=== PATIENT | female | born 1980 | race Caucasian/White ===

== ENCOUNTER 2017-09-07 09:18 | Inpatient (IN) | payer OTHER ==
[~2017-09-07] VITALS: Ht 149.9 cm; Wt 71.4 kg
[2017-09-07 10:45] VITALS: BP 131/75
--- NOTE | 2017-09-07 10:45 | NUR ---
37 year old FEMALE admitted to room # 6 for stabilization. Reports an addiction to ALCOHOL last used 20 hours prior to admission. Compliant with admission procedure. Patient denies any anxiety BUT ADMITS TO NAUSEA See assessment forms for additional information about patient status.
[2017-09-07] MEDS ORDERED: CARAFATE1 G1 PO (11:01)
[2017-09-07] MEDS ORDERED: VITAMIN B-1100 M1 PO (11:03)
[2017-09-07] MEDS ORDERED: LEVOTHYROXINE125 MCG PO (11:03)
[2017-09-07] MEDS ORDERED: ATORVASTATIN CA80 M1 PO (11:04)
[2017-09-07] MEDS ORDERED: PANTOPRAZOLE SO40 MG PO (11:05)
[2017-09-07 11:17] LABS: BASO # 0.1 10*3/uL (0.0-0.1); BASO % 0.6 % (0.0-1.0); EOS % 0.2 % (1.0-4.0); HEMATOCRIT 37.2 % (37.0-47.0); HEMOGLOBIN 12.6 g/dl (12.0-16.0); LYMPH # 2.4 10*3/uL (1.3-4.4); LYMPH % 20.2 % (27.0-41.0); MEAN CELL VOLUME 97.9 fl (81.0-99.0); MEAN CORPUSCULAR HGB 33.2 pg (27.0-31.0); MEAN CORPUSCULAR HGB CONC 33.9 g/dl (33.0-37.0); MEAN PLATELET VOLUME 9.8 fl (9.6-12.3); MONO # 1.2 10*3/uL (0.1-1.0); NEUT # 8.3 10*3/uL (2.3-7.9); NEUT % 68.7 % (47.0-73.0); PLATELET COUNT AUTOMATED 281 10*3/uL (130-400); RED CELL DISTRI WIDTH 13.3 % (0-14.5); WHITE BLOOD COUNT 12.1 10*3/uL (4.8-10.8)
--- NOTE | 2017-09-07 11:31 | NUR ---
D/C PLANNING: PATIENT'S PLAN OF ACTION IS INPATIENT TREATMENT. REFERRALS WERE MADE TO GREGORY HOPPER AND VENKATESH DANIELSON. FRUIT WASHER WILL FOLLOW-UP WITH PATIENT AND BOTH TREATMENT FACILITIES. SINCERE MONACO B.A. FRUIT WASHER.
[2017-09-07 11:40] LABS: ALBUMIN 4.1 gm/dl (3.1-4.5); ALKALINE PHOSPHATASE 86 U/L (45-117); BUN 6 mg/dl (7-24); CHLORIDE 103 mmol/L (98-107); CREATININE 0.78 mg/dL (0.55-1.02); LIPASE 311 U/L (73-393); POTASSIUM 3.8 mmol/L (3.5-5.1); SGOT/AST 37 IU/L (3-35); SGPT/ALT 26 U/L (12-78); SODIUM 137 mmol/L (136-145); TOTAL PROTEIN 8.8 gm/dL (6.4-8.2)
[2017-09-07 11:41] LABS: ETHYL ALCOHOL < 3.0 mg/dl (<3)
[2017-09-07 11:44] LABS: BETA-HCG, QUANT < 1.0 mIU/mL (1-3)
[2017-09-07 11:47] LABS: BILIRUBIN NEGATIVE (NEGATIVE); BLOOD NEGATIVE (NEGATIVE); CLARITY SL CLOUDY (CLEAR); COLOR YELLOW (YELLOW); GLUCOSE NEGATIVE (NEGATIVE); KETONE TRACE (NEGATIVE); LEUKO ESTERASE NEGATIVE (NEGATIVE); NITRITE NEGATIVE (NEGATIVE); SPECIFIC GRAVITY 1.015 (1.005-1.030)
[2017-09-07 12:00] VITALS: BP 125/79
[2017-09-07 12:02] LABS: URINE AMPHETAMINES < 1000 (1000ng/ml); URINE BARBITURATES < 200 (200ng/ml); URINE BENZODIAZEPINES < 200 (200ng/ml); URINE CANNABINOIDS (THC) > 50 (50ng/ml); URINE COCAINE < 300 (300ng/ml); URINE METHADONE < 300 (300ng/ml); URINE OPIATES < 300 (300ng/ml)
--- NOTE | 2017-09-07 12:03 | NUR ---
OFFERED NAUSEA MEDICATION. PATIENT REFUSES AT THIS TIME.
[2017-09-07 12:04] LABS: URINE PHENCYCLIDINE < 25 (25ng/ml)
[2017-09-07 12:05] LABS: BACTERIA 4+; EPITHELIAL CELLS 15-20
[2017-09-07 16:00] VITALS: BP 128/85
[2017-09-07 20:00] VITALS: BP 126/84
--- NOTE | 2017-09-07 20:24 | NUR ---
PRN TRAZADONE GIVEN FOR PT COMPLAINTS OF SLEEPLESSNESS. CALL LIGHT WITHN REACH, WILL MONITOR
--- NOTE | 2017-09-07 20:58 | NUR ---
PRN NICODERM PATCH REQUESTED BY PATIENT INSTEAD OF INHALER. PATCH PLACED ON LEFT ARM
--- NOTE | 2017-09-07 21:30 | NUR ---
PRN TRAZADONE EFFECTIVE, PT SLEEPING
[2017-09-08] VITALS: BP 115/67
--- NOTE | 2017-09-08 01:32 | NUR ---
PRN TRAZADONE GIVEN FOR CONTINUED SLEEPLESSNESS. CALL LIGHT WITHIN REACH, WILL MONITOR
[2017-09-08 08:00] VITALS: BP 110/79
--- NOTE | 2017-09-08 08:06 | NUR ---
Patient reports the following symptoms of withdrawal: ANXIETY . Patient given scheduled/PRN medication to control withdrawal symptoms. Close observation will be maintained.
--- NOTE | 2017-09-08 09:00 | NUR ---
Patient resting. Responding to scheduled medications with fewer complaints of anxiety.
[2017-09-08 12:00] VITALS: BP 115/68
[2017-09-08 16:00] VITALS: BP 102/60
[2017-09-08 20:00] VITALS: BP 128/72
--- NOTE | 2017-09-08 20:40 | NUR ---
PATIENT IS RESTING IN BED. PATIENT DENIES ANY PAIN OR DISCOMFORT AT THIS TIME. PATIENT WAS COOPERATIVE UPON ASSESSSMENT. PATIENT HAS NO SOB AND IS ABLE TO RESPOND APPROPRIATELY. CALL LIGHT IS WITHIN REACH. SEE SHIFT ASSESSMENT.
[2017-09-09] VITALS: BP 98/55
--- NOTE | 2017-09-09 00:42 | NUR ---
PATIENT IS WATCHING TV IN THE ROOM. PATIENT IS REQUESTING SOMETHING TO HELP THEM SLEEP. PATIENT IS COOPERATIVE AND WILLING TO PARTICIPATE IN CARE. PATIENT DENIES ANY PAIN OR DISCOMFORT AT THIS TIME. CALL LIGHT IS WITHIN REACH.
--- NOTE | 2017-09-09 00:44 | NUR ---
PATIENT WAS GIVEN TRAZADONE PER PATIENT REQUEST TO HELP WITH SLEEP.
[2017-09-09 06:14] LABS: BASO % 0.4 % (0.0-1.0); EOS # 0.2 10*3/uL (0.0-0.4); EOS % 2.5 % (1.0-4.0); HEMOGLOBIN 11.3 g/dl (12.0-16.0); LYMPH # 2.5 10*3/uL (1.3-4.4); LYMPH % 34.7 % (27.0-41.0); MEAN CELL VOLUME 98.6 fl (81.0-99.0); MEAN CORPUSCULAR HGB 32.8 pg (27.0-31.0); MEAN CORPUSCULAR HGB CONC 33.2 g/dl (33.0-37.0); MEAN PLATELET VOLUME 10.8 fl (9.6-12.3); MONO # 0.9 10*3/uL (0.1-1.0); MONO % 12.3 % (3.0-9.0); NEUT # 3.6 10*3/uL (2.3-7.9); PLATELET COUNT AUTOMATED 229 10*3/uL (130-400); RED BLOOD COUNT 3.45 10*6/uL (4.10-5.10); RED CELL DISTRI WIDTH 13.2 % (0-14.5); WHITE BLOOD COUNT 7.2 10*3/uL (4.8-10.8)
--- NOTE | 2017-09-09 06:39 | NUR ---
PATIENT IS UP IN THE BED WITH THE TELEVISION ON. PATIENT HAS DENIED ANY SYMPTOMS OF WITHDRAWAL AND HAS HAD NO PAIN OR DISCOMFORT THROUGHOUT THE NIGHT. WILL CONTINUE TO MONITOR THE PATIENT. CALL LIGHT WITHIN REACH. SEE SHIFT ASSESSMENT.
[2017-09-09 06:40] LABS: ALBUMIN 3.4 gm/dl (3.1-4.5); ALKALINE PHOSPHATASE 62 U/L (45-117); BUN 14 mg/dl (7-24); CHLORIDE 106 mmol/L (98-107); CREATININE 0.64 mg/dL (0.55-1.02); POTASSIUM 3.6 mmol/L (3.5-5.1); SGOT/AST 35 IU/L (3-35); SGPT/ALT 23 U/L (12-78); SODIUM 139 mmol/L (136-145); TOTAL PROTEIN 7.3 gm/dL (6.4-8.2)
[2017-09-09 08:00] VITALS: BP 112/59
--- NOTE | 2017-09-09 08:10 | NUR ---
PT AWAKE. ASSESSMENT COMPLETE. NO PATIENT COMPLAINTS A THIS TIME. BED LOW. CALL MELENDEZ MELENDEZ IN REACH.
[2017-09-09 12:00] VITALS: BP 109/52
[2017-09-09 16:00] VITALS: BP 144/84
--- NOTE | 2017-09-09 16:32 | NUR ---
D/C PLANNING: PATIENT IS WORKING WITH LEAH OWENS-HE IS WORKING ON FINDING RESIDENTIAL TREATMENT. PENCIL SORTER SPOKE WITH HIM AND HE STATED THAT HE IS LOOKING AT EITHER TUESDAY OR TUESDAY. HE WILL CONTACT PATIENT TUESDAY. PATIENT UNDERSTANDS AND AGREES TO AFTERCARE PLAN. SINCERE MONACO B.A. PENCIL SORTER
[2017-09-09 20:00] VITALS: BP 106/65
[2017-09-10] VITALS: BP 117/72
[2017-09-10 08:00] VITALS: BP 122/86
--- NOTE | 2017-09-10 10:08 | NUR ---
IV ATIVAN FOR SEVERE AGITATION
[2017-09-10] MEDS ORDERED: ATARAX,VISTARIL50 MG PO (14:28)
--- NOTE | 2017-09-10 14:39 | NUR ---
I HAVE SPOKEN WITH MULTIPLE FAMILY MEMBERS TODAY, ALL VERY CONCERNED FOR PT RELASPING IF DC TO HOME
--- NOTE | 2017-09-10 14:54 | NUR ---
PT FOR DISCHARGE HOME SCRIPTS GIVEN FAMILY AWARE AND HAVE CONTACTED CARMELLA KOEHLER
--- NOTE | 2017-09-10 15:34 | NUR ---
PT AWAITING A RIDE HOME
== END 2017-09-10 16:00 | disposition home or self-care (01) | DRG 897 ==
LOC: 4E 09:18
PROVIDERS: Internal Medicine; Registered Nurse; ADMIT Internal Medicine
DX: F10.239 Alcohol dependence with withdrawal, unspecified (principal); R65.10 Systemic inflammatory response syndrome (SIRS) of non-infectious origin without acute organ dysfunction; E44.1 Mild protein-calorie malnutrition; R19.7 Diarrhea, unspecified; F41.9 Anxiety disorder, unspecified; F32.9 Major depressive disorder, single episode, unspecified; Y90.9 Presence of alcohol in blood, level not specified; R82.71 Bacteriuria; E78.5 Hyperlipidemia, unspecified; E03.9 Hypothyroidism, unspecified; K21.9 Gastro-esophageal reflux disease without esophagitis; F12.10 Cannabis abuse, uncomplicated; Z82.3 Family history of stroke; Z82.49 Family history of ischemic heart disease and other diseases of the circulatory system; Z83.79 Family history of other diseases of the digestive system; Z79.899 Other long term (current) drug therapy; Z68.31 Body mass index [BMI] 31.0-31.9, adult